=== PATIENT | male | born 1990 | race Caucasian/White ===

== ENCOUNTER 2024-04-26 06:52 | Emergency (ER) | payer BC, SELFPAY ==
[2024-04-26 06:53] VITALS: BP 144/89; PULSE 88; RESP 16; TEMP 37.8; O2SAT 100
[2024-04-26 07:04] VITALS: PULSE 88; RESP 16; TEMP 37.8; O2SAT 100
--- NOTE | 2024-04-26 07:10 | ED.GENADUL_ITS ---
Discharge Plan Disposition Patient Disposition: Home Condition: Stable Discharge Details Clinical Impression: TGA (transient global amnesia) Primary Care Provider: Mirian,Local ED Provider: Ga Blandon Home Meds and New Rx's Prescriptions: New lithium carbonate 300 mg capsule 300 mg PO QAM Qty: 30 0RF lithium carbonate 600 mg capsule 600 mg PO QHS Qty: 30 0RF Continued lithium carbonate 300 mg capsule 300 mg PO DAILY lithium carbonate 600 mg capsule 600 mg PO QHS Discharge Instructions Additional Instructions: Your blood work did not show any concerning findings. I would recommend continuing your lithium as prescribed. I recommend following up with a primary care provider where you live and also your psychiatrist. If you develop new symptoms such as weakness, high fevers or thoughts of self-harm return to the emergency department for reevaluation HPI General Mode of arrival: ambulatory . Date/Time Provider Initiated Documentation: 04/26/24 06:54 . Limitations to Documentation: no limitations . Information obtained by: patient . History of Present Illness 33 year old M presents to the emergency department with the chief complaint of don't remember how get got to [place], Patient started experiencing this unknown and it has been constant. No relieving factors improve symptom(s), No exacerbating factors reported . Patient notes denies chest pain, fever/chills, nausea/vomiting and shortness of breath. Patient did receive the following treatments prior to arrival, none Related Data Home Medications ?Medication ?Instructions ?Recorded ?Confirmed lithium carbonate 300 mg capsule 300 mg PO DAILY 04/26/24 04/26/24 lithium carbonate 300 mg capsule 300 mg PO QAM #30 caps 04/26/24 lithium carbonate 600 mg capsule 600 mg PO QHS 04/26/24 04/26/24 lithium carbonate 600 mg capsule 600 mg PO QHS #30 caps 04/26/24 Previous Rx's ?Medication ?Instructions ?Recorded lithium carbonate 300 mg capsule 300 mg PO QAM #30 caps 04/26/24 lithium carbonate 600 mg capsule 600 mg PO QHS #30 caps 04/26/24 General Stated Complaint: AMS/LOC SUMEET: 5 Review of Systems All systems reviewed & are unremarkable except as noted in HPI and below Constitutional Constitutional: Denies chills, Denies fever(s) and Denies weakness Eyes Eyes: Denies loss of vision ENT Ears, Nose, Mouth, and Throat: Denies change in voice Cardiovascular Cardiovascular: Denies chest pain and Denies dyspnea Respiratory Respiratory: Denies cough and Denies dyspnea Gastrointestinal Gastrointestinal: Denies abdominal pain, Denies nausea and Denies vomiting Neurologic Neurologic: Denies loss of vision and Denies weakness Exam Const General: no acute distress Orientation: alert HENMT Head: normal to inspection Ears: external ears normal General nose exam: external nose normal Mouth: moist mucous membranes Eyes General: appearance normal, both eyes and all related structures Neck Neck: normal visual inspection Resp Effort & Inspection: normal respiratory effort and able to speak in complete sentences Auscultation: clear to auscultation bilaterally Cardio Jugular venous pressure: no JVD Rate: regular rate Heart Sounds: no murmurs GI Palpation: soft and nontender Skin General skin exam: no rashes or lesions noted Neuro General: patient alert and patient oriented x3 Cranial Nerves: CN's II-XI intact bilaterally Cognition: normal cognition Speech: speech normal Gait: normal gait Extrem General: normal to inspection Psych Appearance: well kempt Mental Status: mental status grossly normal Affect: normal affect Attitude: cooperative Course Vital Signs Vital signs: Vital Signs Temperature 37.8 C H 04/26/24 06:53 Pulse 88 04/26/24 06:53 Respiratory Rate 16 04/26/24 06:53 Blood Pressure 144/89 H 04/26/24 06:53 Pulse Oximetry 100 04/26/24 06:53 Temperature 37.8 C H 04/26/24 07:04 Temperature Source Temporal Artery Scan 04/26/24 07:04 Pulse 88 04/26/24 07:04 Respiratory Rate 16 04/26/24 07:04 Respiratory Effort Normal 04/26/24 07:05 Respiratory Depth Normal 04/26/24 07:05 Respiratory Pattern Normal 04/26/24 07:05 Blood Pressure 144/89 H 04/26/24 06:53 Blood Pressure Position Sitting 04/26/24 07:04 Pulse Oximetry 100 04/26/24 07:04 Oxygen Delivery Method Room Air 04/26/24 07:04 Oxygen Flow Rate 0 04/26/24 06:53 Pain Level 0 04/26/24 07:04 Medical Decision Making 33-year-old male who is on lithium for bipolar disorder and states he lives in [facility] he last remembers playing video games at home in [place] and found himself driving here in [place]. He stopped at a gas station and called his father and called EMS who brought him here. He denies any drug use or alcohol use. He says he feels fine now without any complaints. He denies having thoughts of self-harm. He has no recollection of how he got up here in [place]. He is oriented x 4, has a normal gait, no focal neurological deficits, he does have a low-grade temperature here but denies infectious symptoms such as cough, subjective fevers or chills, no neck stiffness. I suspect transient global amnesia versus possibly related to his psychiatric illness, he has no SI or HI so I do not feel any acute psychiatric intervention indicated. I will check a cMP to evaluate for possible electrolyte abnormalities and also check a urine drug screen and EtOH level notably shows no signs of being intoxicated. Labs unremarkable, lithium level undetectable, he states he likely did take his lithium dose last night. He is eating and drinking here without any complaints. Suspect his issue could be transient global amnesia versus related to psychiatric illness. He has no SI and HI and is not manic so I do not feel he needs to emergent psych evaluation. He is stable for discharge. I advised to follow-up with the PCP and [facility] when he returns home and also a psychiatrist. Return precautions given Patient's father arrived and requested paper prescriptions in case patient can't find his own lithium which I provided as well as a night time dose of his lithium to go. Father states that patient is at his baseline currently and is comfortable doing him home. Differential Diagnosis Differential Diagnosis: Bipolar disorder, transient global amnesia Lab Data Lab results reviewed: Yes I reviewed the patient's lab results. Quality:SDOH Health Related Social Needs: No Data to Display PFSH All Active Problems (Updated 04/26/24 @ 08:56 by Ga Blandon MD) TGA (transient global amnesia) (Acute) Social History Smoking/Tobacco Use Status: Never Smoking risk assessment performed?: Yes Alcohol Intake: never Substance use type: does not use Housing: apartment Do you feel safe at home: Yes Do you feel safe in your relationship?: Yes Additional Social history: pt lives in [facility], father called to come get pt.
[2024-04-26 08:01] LABS: Abs Immature Grans 0.05 10^3/uL (0.0-0.06); Absolute Basophil Count 0.05 10^3/uL (0.0-0.2); Absolute Eosinophil Count 0.08 10^3/uL (0.0-0.7); Absolute Lymphocyte Count 0.83 10^3/uL (1.2-3.4); Absolute Neutrophil Count 6.89 10^3/uL (1.2-6.7); Basophils % 0.6 %; HCT 43.7 % (40.0-50.0); HGB 14.9 g/dL (13.5-17.5); Immature Grans % 0.6 %; Lymphocytes % 10.1 %; MCH 31.1 pg (27.0-33.0); MCHC 34.1 % (32.0-36.0); MCV 91 fL (80-95); MPV 9.1 fL (8.0-11.0); Monocytes % 3.7 %; Platelet Count 322 10^3/uL (130-400); RBC 4.79 10^6/uL (4.36-5.78); RDW 12.4 % (11.8-14.1); RDW-SD 41.1 fL
[2024-04-26 08:21] LABS: *AMPHETAMINES SCREEN URINE Negative (Negative); *BARBITURATES SCREEN URINE Negative (Negative); *BENZODIAZEPINES SCREEN URINE Negative (Negative); Cannabinoids THC Negative (Negative); Cocaine Screen,Urine Negative (Negative); METHADONE URINE SCREEN Negative (Negative); OPIATES URINE SCREEN Negative (Negative)
[2024-04-26 08:24] LABS: Tricyclic Antidepressants Negative (Negative)
[2024-04-26 08:29] LABS: ALT 25 U/L (16-63); AST 16 U/L (15-37); Albumin 4.2 g/dL (3.4-5.0); Alkaline Phosphatase 65 U/L (46-116); Anion Gap 14.9 mmol/L (3-11); BUN 18 mg/dL (7-18); Bilirubin, Total 1.85 mg/dL (0.2-1.0); CO2 26.1 mmol/L (21.0-32.0); Calcium 9.8 mg/dL (8.5-10.1); Chloride 100 mmol/L (98-107); Estimated GFR 101.92 (mL/min/1.73m2); Glucose 131 mg/dL (74-106); Potassium 3.6 mmol/L (3.5-5.1); Sodium 141 mmol/L (136-145); TSH (W/Ref FT4) 1.21 uIU/mL (0.36-3.74); Total Protein 7.6 g/dL (6.4-8.2)
[2024-04-26 08:30] LABS: ETHANOL BLOOD < 3.0 mg/dL (<10)
[2024-04-26 08:34] LABS: Salicylate < 2.8 mg/dL (<2.8)
[2024-04-26 08:36] LABS: Acetaminophen < 2 ug/mL (10-30); Lithium < 0.2 mmol/L (0.6-1.2)
[2024-04-26 10:25] VITALS: BP 156/98; PULSE 119; RESP 16; TEMP 38.3; O2SAT 100
--- NOTE | 2024-04-27 14:20 | NUR.NOTE ---
Person called stating that they dropped this patient off this morning and was wondering about his status. I accessed chart to determine if he had been here. Consulted with Renetta Eli, RN/Nursing User Support Specialist and told the caller that we did not have anyone by this name at the hospital. He asked name of hospital and stated then that he had called the wrong hospital. Nursing Note:
== END 2024-04-26 15:41 | disposition home or self-care (01) ==
PROVIDERS: Emergency Provider Emergency Medicine
DX: G45.4 Transient global amnesia (principal); F31.89 Other bipolar disorder
CPT/HCPCS: 36415; 80053; 80307; 87426; 99283; 80178; 80320; 80329; 83735; 84443; 85025; J3490